=== PATIENT | male | born 1965 | race Caucasian/White ===

== ENCOUNTER 2018-08-04 12:09 | Inpatient (IN) | payer BC, OTHER ==
[2018-08-04] VITALS (11 sets, daily range): BP systolic 94–126; BP diastolic 72–97; PULSE 55–91; RESP 10–25; Ht 175.3 cm; Wt 86.4 kg
[~2018-08-04] VITALS: Ht 175.3 cm; Wt 86.4 kg
[2018-08-04] MEDS ORDERED: ONDANSETRON 4 MG INJ IV STA (12:12)
[2018-08-04] MEDS ORDERED: SOD CHLORIDE 0.9% 500 ML IV STA (12:12)
[2018-08-04] MEDS ORDERED: morphine 2 MG INJ IV STA (12:12)
[2018-08-04] MEDS ORDERED: HEPARIN 1000 UNITS/ML 10 ML INJ IV STA (12:12)
[2018-08-04] MEDS ORDERED: SIMV20TA PO (12:20)
--- NOTE | 2018-08-04 12:26 | ERD ---
ER Documentation Chief Complaint Chief Complaint STEMI HPI This is a 52-year-old man brought in by EMS for possible STEMI, patient de ulisesibes substernal chest discomfort, pressure while walking his dog, he had been walking for about 15 minutes 1 discomfort began. Was associated with shortness of breath, nausea, diaphoresis. Patient states he has had multiple milder episodes in the past. He denies history of IN, no aspirin use, no fevers or chills, no cough, no LOC. EMS administered aspirin 324 mg p.o. at the scene and transported him here. Patient has no significant family history of cardiac disease and no personal medical history of GI bleed. ROS All systems reviewed and are negative except as per history of present illness. Medications Home Meds Reported Medications Venlafaxine Hcl* (Effexor XR*) 37.5 Mg Tab.er.24, 37.5 MG PO DAILY, TAB 08/04/18 Lamotrigine* (Lamotrigine*) 100 Mg Tablet, 300 MG PO DAILY, TAB 08/04/18 Citalopram Hydrobromide* (Citalopram Hydrobromide*) 40 Mg Tablet, 40 MG PO DAILY, #30 TAB 08/04/18 Simvastatin* (Zocor*) 20 Mg Tablet, 20 MG PO QHS, #30 TAB 08/04/18 Allergies Allergies: Coded Allergies: No Known Allergy (Unverified , 08/04/18) FmHx Family History: No diabetes Physical Exam Vitals Vital Signs Date Temp Pulse Resp B/P (MAP) Pulse Ox O2 O2 Flow FiO2 Time Delivery Rate 08/04/18 97.6 92 24 144/94 100 12:14 (111) Physical Exam GENERAL: Well-developed, well-nourished, diaphoretic, uncomfortable, afebrile HEENT: Moist mucous membranes, pink conjunctiva, no cervical spine tenderness or step-off deformities, no goiter, no jaundice or icterus, extraocular movements intact without pain. NEURO: Alert and oriented 3, cranial nerves II through XII intact bilaterally, pupils equal round reactive to light, no focal deficits or facial asymmetry, sensation intact distally Strength 5/5 in upper and lower extremities bilater ally CARDIAC: Regular rate and rhythm, no murmurs rubs or gallops LUNGS: Clear bilaterally no wheezing crackles or stridor ABDOMEN: Soft nontender, no guarding, no rigidity, no rebound, no psoas sign no obturator sign. SKIN: Diaphoretic, no abrasions, contusions, or hematomas, no lacerations, no ec chymosis, no target lesions, and without ulcers EXTREMITIES: No clubbing cyanosis or edema, calves are bilaterally symmetrical, no Homans sign, no popliteal cord sign. Distal pulses equal and bilateral PSYCH: Normal affect without agitation or irritability Result Diagram: 08/04/18 1219 08/04/18 1219 Results 24 hrs Laboratory Tests Test 08/04/18 12:19 White Blood Count 7.8 10^3/ul Red Blood Count 5.25 10^6/ul Hemoglobin 16.3 g/dl Hematocrit 48.0 % Mean Corpuscular Volume 91.4 fl Mean Corpuscular Hemoglobin 31.0 pg Mean Corpuscular Hemoglobin Concent 34.0 g/dl Red Cell Distribution Width 12.0 % Platelet Count 295 10^3/UL Mean Platelet Volume 9.8 fl Immature Granulocytes % 0.300 % Neutrophils % 59.7 % Lymphocytes % 28.6 % Monocytes % 9.6 % Eosinophils % 1.2 % Basophils % 0.6 % Nucleated Red Blood Cells % 0.0 /100WBC Immature Granulocytes # 0.020 10^3/ul Neutrophils # 4.7 10^3/ul Lymphocytes # 2.2 10^3/ul Monocytes # 0.8 10^3/ul Eosinophils # 0.1 10^3/ul Basophils # 0.1 10^3/ul Nucleated Red Blood Cells # 0.0 10^3/ul Prothrombin Time 12.7 Sec Prothrombin Time Ratio 1.0 INR International Normalized Ratio 0.94 Activated Partial Thromboplast Time 25.6 Sec Sodium Level 141 mmol/L Potassium Level 3.9 mmol/L Chloride Level 106 mmol/L Carbon Dioxide Level 23 mmol/L Anion Gap 12 Blood Urea Nitrogen 15 mg/dl Creatinine 1.10 mg/dl Est Glomerular Filtrat Rate mL/min > 60 mL/min Glucose Level 137 mg/dl Calcium Level 9.5 mg/dl Total Bilirubin 0.6 mg/dl Direct Bilirubin 0.00 mg/dl Indirect Bilirubin 0.6 mg/dl Aspartate Amino Transf (AST/SGOT) 26 IU/L Alanine Aminotransferase (ALT/SGPT) 22 IU/L Alkaline Phosphatase 95 IU/L Creatine Kinase 108 IU/L Creatine Kinase Index 0.7 Creatinine Kinase MB (Mass) 0.74 ng/ml Troponin I < 0.012 ng/ml B-Type Natriuretic Peptide 14 PG/ML Total Protein 7.6 g/dl Albumin 4.5 g/dl Globulin 3.10 g/dl Albumin/Globulin Ratio 1.45 Lipase 96 U/L Current Medications Medications Dose Sig/Valorie Start Time Status Last (Trade) Ordered Route PRN Stop Time Admin Dose Reason Admin Sodium 500 ml @ Q1H STAT 08/04/18 DC 08/04/18 Chloride 500 mls/hr IV 12:12 12:23 08/04/18 13:11 Morphine 2 mg ONCE STAT 08/04/18 DC 08/04/18 Sulfate IV 12:12 12:23 (morphine) 08/04/18 12:14 Ondansetron 4 mg ONCE STAT 08/04/18 DC 08/04/18 HCl (Zofran IV 12:12 12:24 Inj) 08/04/18 12:14 Heparin 5,000 unit ONCE STAT 08/04/18 DC 08/04/18 Sodium IV 12:12 12:23 (Porcine) 08/04/18 12:14 (Heparin (1000 Units/ml)) Procedures/MDM IV line was established patient was placed on quality assurance monitor final rhythm strip revealed a sinus rhythm at about 90 bpm with upright P and T waves. Patient was afebrile I reviewed EMS EKG and revealed elevations in inferior lead with reciprocal nava ges consistent with inferior wall IN. Code STEMI was immediately called. Administered 500 cc normal saline IV, morphine 2 mg IV, Zofran 4 mg IV, nitroglycerin 0.4 mg sublingual, and IV heparin bolus I spoke to regional economist on-call who agreed with above plan and recommended immediate transfer to PCI lab EKG performed, read by me revealed a normal sinus rhythm at 99 bpm, normal axis, intraventricular conduction delay at 102 ms with [address] elevations in inferior leads and reciprocal changes in leads V2 through V4 consistent with acute ischemic injury. One AP view of the chest performed, read by me reveals no acute infiltrates, normal mediastinum, sharp costophrenic and cardiac borders, no air under the diaphragm. Otherwise unremarkable chest x-ray. Critical Care: Time: 38 minutes, this was time separate from other billable procedures. Treatments/Evaluations: Close monitoring and treatment of unstable vital signs, cardiorespiratory, and neurologic status, while maintaining tight balance of fluid, respiratory, and cardiac interventions. CBC and electrolytes were normal, liver function tests were normal, troponin was negative, coagulation profile was normal Patient presented with unstable angina with an EKG concerning for RCA occlusion, he required emergent PCI intervention and will be admitted to ICU post angioplasty Departure Diagnosis: Primary Impression: ST elevation myocardial infarction (STEMI) Involved coronary artery: other inferior wall coronary artery Qualified Codes: I21.19 - ST elevation (STEMI) myocardial infarction involving other coronary artery of inferior wall Additional Impressions: Unstable angina RCA occlusion Condition: Serious MIMI DUCKWORTH MD August 04, 2018 12:26
[2018-08-04] MEDS ORDERED: LAMO100T PO (12:28)
[2018-08-04] MEDS ORDERED: HEPARIN 1000 UNITS/ML 10 ML INJ ONE (12:28)
[2018-08-04] MEDS ORDERED: CITA40TA6 PO (12:28)
[2018-08-04] MEDS ORDERED: IODIXANOL LOCM 100 ML BTL ONE ×3 (12:28→13:27)
[2018-08-04] MEDS ORDERED: NITROGLYCERIN (IC) 100 MCG/ML INJ ONE (12:29)
[2018-08-04] MEDS ORDERED: VENL37.59 PO (12:29)
[2018-08-04] MEDS ORDERED: VERAPAMIL 5 MG INJ ONE (12:29)
[2018-08-04] MEDS ORDERED: LIDOCAINE 1% (MDV) 20 ML INJ ONE (12:29)
[2018-08-04] MEDS ORDERED: NITROGLYCERIN (SL) 0.4 MG TAB SL PRN (12:30)
[2018-08-04] MEDS ORDERED: morphine 10 MG INJ ONE (12:45)
[2018-08-04] MEDS ORDERED: MIDAZOLAM 1 MG/ML 2 ML INJ ONE (12:49)
[2018-08-04] MEDS ORDERED: TICAGRELOR 90 MG TABLET ONE (13:38)
[2018-08-04] MEDS ORDERED: ATROPINE 1 MG/10 ML SYRINGE ONE (14:00)
--- NOTE | 2018-08-04 14:06 | CONS ---
Assessment/Plan Assessment/Plan Hospital Course (Demo Recall) 52 yo with STEMI due to occluded RCA, s/p successful angioplasty, with preserved LVEF. Imp: STEMI inferior wall, s/p pci Hyperlipidemia Marijuana use Recommendations: ASA, ticagrelor, atorvastatin, metoprolol Echo Observe in ICU Lifestyle modification advised, marijuana cessation, plant-based diet Possible discharge home if stable overnight Consultation Date/Type/Reason Admit Date/Time August 04, 2018 at 12:53 Date of Consultation: August 04, 2018 Type of Consult Cardiology Reason for Consultation STEMI Requesting Provider: MIMI DUCKWORTH MD Date/Time of Note DATE: 08/04/18 TIME: 13:52 Hx of Present Illness 52 yo with history of hyperlipidemia and marijuana use who presents with acute chest pain while jogging with his dog one hour prior to arrival and ST elevations in the inferior leads, associated with arm pain. He underwent coronary angiography with angioplasty of a completely occluded RCA. Case significant for transient bradycardia, hypotension, and idioventricular rhythm, all of which resolved at the end of the procedure. Subjective hx not possible: pt critical Past Medical History Medical History: high cholesterol Home Meds Reported Medications Venlafaxine Hcl* (Effexor XR*) 37.5 Mg Tab.er.24, 37.5 MG PO DAILY, TAB 08/04/18 Lamotrigine* (Lamotrigine*) 100 Mg Tablet, 300 MG PO DAILY, TAB 08/04/18 Citalopram Hydrobromide* (Citalopram Hydrobromide*) 40 Mg Tablet, 40 MG PO DAILY, #30 TAB 08/04/18 Simvastatin* (Zocor*) 20 Mg Tablet, 20 MG PO QHS, #30 TAB 08/04/18 Medications Current Medications Nitroglycerin (Nitroglycerin (Sl Tab) 0.4 Mg) 1 tab Q5M UP TO 3 DOSES PRN SL .CHEST PAIN Last administered on 08/04/18at 12:24; Admin Dose 1 TAB; Start 08/04/18 at 12:30 Allergies: Coded Allergies: No Known Allergy (Unverified , 08/04/18) Family History Significant Family History: no pertinent family hx Social History Alcohol Use: rarely Smoking Status: Never smoker Drug Use: marijuana Exam/Review of Systems Vital Signs Vitals Vital Signs Date Temp Pulse Resp B/P (MAP) Pulse Ox O2 O2 Flow FiO2 Time Delivery Rate 08/04/18 Nasal 2 12:25 Cannula 08/04/18 97.6 92 24 144/94 100 12:14 (111) Exam Constitutional: alert, oriented Psych: nl mood/affect, anxiety Head: normocephalic, atraumatic Eyes: nl conjunctiva, EOMI, nl lids, nl sclera ENMT: nl lips & teeth, nl nasal mucosa & septum Neck: supple; No jvd, No bruits Respiratory: clear to auscultation, normal air movement Cardiovascular: regular rate and rhythm, nl pulses (nl radial); No edema, No murmurs/extra sounds Gastrointestinal: soft Musculoskeletal: nl extremities to inspection Neurological: nl mental status, nl speech Skin: nl turgor Labs Result Diagram: 08/04/18 1219 08/04/18 1219 Results 24hrs Laboratory Tests Test 08/04/18 12:19 White Blood Count 7.8 Red Blood Count 5.25 Hemoglobin 16.3 Hematocrit 48.0 Mean Corpuscular Volume 91.4 Mean Corpuscular Hemoglobin 31.0 Mean Corpuscular Hemoglobin Concent 34.0 Red Cell Distribution Width 12.0 Platelet Count 295 Mean Platelet Volume 9.8 Immature Granulocytes % 0.300 Neutrophils % 59.7 Lymphocytes % 28.6 Monocytes % 9.6 Eosinophils % 1.2 Basophils % 0.6 Nucleated Red Blood Cells % 0.0 Immature Granulocytes # 0.020 Neutrophils # 4.7 Lymphocytes # 2.2 Monocytes # 0.8 Eosinophils # 0.1 Basophils # 0.1 Nucleated Red Blood Cells # 0.0 Prothrombin Time 12.7 Prothrombin Time Ratio 1.0 INR International Normalized Ratio 0.94 Activated Partial Thromboplast Time 25.6 Sodium Level 141 Potassium Level 3.9 Chloride Level 106 Carbon Dioxide Level 23 Anion Gap 12 Blood Urea Nitrogen 15 Creatinine 1.10 Est Glomerular Filtrat Rate mL/min > 60 Glucose Level 137 Calcium Level 9.5 Total Bilirubin 0.6 Direct Bilirubin 0.00 Indirect Bilirubin 0.6 Aspartate Amino Transf (AST/SGOT) 26 Alanine Aminotransferase (ALT/SGPT) 22 Alkaline Phosphatase 95 Creatine Kinase 108 Creatine Kinase Index 0.7 Creatinine Kinase MB (Mass) 0.74 Troponin I < 0.012 B-Type Natriuretic Peptide 14 Total Protein 7.6 Albumin 4.5 Globulin 3.10 Albumin/Globulin Ratio 1.45 Lipase 96 Medications Medications Current Medications Nitroglycerin (Nitroglycerin (Sl Tab) 0.4 Mg) 1 tab Q5M UP TO 3 DOSES PRN SL .CHEST PAIN Last administered on 08/04/18at 12:24; Admin Dose 1 TAB; Start 08/04/18 at 12:30 EZEQUIEL BENOIT August 04, 2018 14:02
--- NOTE | 2018-08-04 14:22 | OPR ---
Date/Time of Note Date/Time of Note DATE: 08/04/18 TIME: 14:16 Operative Report Procedure Date: August 04, 2018 Preoperative Diagnosis STEMI inferior wall Postoperative Diagnosis same Operation/Procedure Performed moderate sedation, coronary angiogram, left heart cath, left ventriculography, pci with stent to the mid RCA Surgeon see signature line Pole Sander Operator Hugo TIRE MAKER Anesthesia Type: moderate sedation Estimated Blood Loss: 50 - 100 ml's Transfusion none Specimen none Grafts/Implants Xience 3.5 x 23 mm Complications none Pt Condition Post Procedure: stable Disposition: other (ICU) Indications 52 yo with acute inferior STEMI Procedure Description Procedure: Informed consent obtained. Pt brought emergently to the lab support technician, having eaten 2 hours earlier, received careful moderate sedation with 2 mg of versed and morphine. Right radial artery accessed, 6F sheath placed, verapamil and nitro given through the sheath. A tiger catheter engaged the LM and RCA and images obtained with contrast. ACT checked, additional heparin given. A JR4 guide used, and wire advanced down the RCA. A 2.5 x 12 mm balloon inflated, then a pronto catheter passed, and a 3.0 x 12 mm balloon inflated. The lesion was stented with a 3.5 x 23 mm stent. Angiography performed in multiple projections including a wire out shot demonstrating good apposition of the stent and good flow. Pigtail catheter advanced and crossed the LV, pressures measured, LV gram performed, and pullback gradient measured. At the end, nitro given through the sheath, and then a TR band placed. During the case, pt had bradycardia, idioventricular rhythm, and transient hypotension. He left the room in stable condition. Findings: LM - normal LCX - normal, two large om's LAD - mild luminal irregularities RCA - 100% occluded in mid portion. Once opened, extensive posterolateral branch system free of significant disease LVEDP - 27 LVEF - 55% with inferior basal akinesis EZEQUIEL BENOIT August 04, 2018 14:22
[2018-08-04] MEDS: SOD CHLORIDE 0.9% 1,000 ML IV SCH (14:42)
[2018-08-04] MEDS: METOPROLOL 25 MG TAB PO SCH ×2 (15:07→20:57)
--- NOTE | 2018-08-04 16:03 | HP ---
Date/Time of Note Date/Time of Note DATE: 08/04/18 TIME: 15:55 Assessment/Plan VTE Prophylaxis SCD contraindicated: low risk/ambulating Pharmacological prophylaxis: NA/contraindicated Pharm contraindication: low risk/ambulating Lines/Catheters IV Catheter Type (from Nrs): Saline Lock Assessment/Plan Hospital Course 52 yo M with cp while jogging managed as follows : 1. STEMI inferior wall, s/p emergent pci RCA 2. Chronic Hyperlipidemia on statin 3. Marijuana use Plan: continue routine ICU care and monitoring post Cath patient now on asa / statin / brilinta Case mgt consult to help in ensuring patient can get brilinta outpatient smoking Cessation Therapy: Pt. was counselled for greater than 3 minutes on the health risks of continued smoking and the benefits of cessation, this will continue to be reinforced throughout hospitalization. screening labs and close monitoring further interventions per course Result Diagram: 08/04/18 1219 08/04/18 1219 Results 24hrs Laboratory Tests Test 08/04/18 12:19 White Blood Count 7.8 Red Blood Count 5.25 Hemoglobin 16.3 Hematocrit 48.0 Mean Corpuscular Volume 91.4 Mean Corpuscular Hemoglobin 31.0 Mean Corpuscular Hemoglobin Concent 34.0 Red Cell Distribution Width 12.0 Platelet Count 295 Mean Platelet Volume 9.8 Immature Granulocytes % 0.300 Neutrophils % 59.7 Lymphocytes % 28.6 Monocytes % 9.6 Eosinophils % 1.2 Basophils % 0.6 Nucleated Red Blood Cells % 0.0 Immature Granulocytes # 0.020 Neutrophils # 4.7 Lymphocytes # 2.2 Monocytes # 0.8 Eosinophils # 0.1 Basophils # 0.1 Nucleated Red Blood Cells # 0.0 Prothrombin Time 12.7 Prothrombin Time Ratio 1.0 INR International Normalized Ratio 0.94 Activated Partial Thromboplast Time 25.6 Sodium Level 141 Potassium Level 3.9 Chloride Level 106 Carbon Dioxide Level 23 Anion Gap 12 Blood Urea Nitrogen 15 Creatinine 1.10 Est Glomerular Filtrat Rate mL/min > 60 Glucose Level 137 Calcium Level 9.5 Total Bilirubin 0.6 Direct Bilirubin 0.00 Indirect Bilirubin 0.6 Aspartate Amino Transf (AST/SGOT) 26 Alanine Aminotransferase (ALT/SGPT) 22 Alkaline Phosphatase 95 Creatine Kinase 108 Creatine Kinase Index 0.7 Creatinine Kinase MB (Mass) 0.74 Troponin I < 0.012 B-Type Natriuretic Peptide 14 Total Protein 7.6 Albumin 4.5 Globulin 3.10 Albumin/Globulin Ratio 1.45 Lipase 96 HPI/ROS Admit Date/Time Admit Date/Time August 04, 2018 at 12:53 Hx of Present Illness 52-year-old man brought who had developed substernal chest discomfort, pressure while walking his dog, he had been walking for about 15 minutes 1 discomfort began. Was associated with shortness of breath, nausea, diaphoresis. Patient states he has had multiple milder episodes in the past. He denies history of CT, no aspirin use, no fevers or chills, no cough, no LOC. EMS administered aspirin 324 mg p.o. at the scene and transported him here. Patient has no significant family history of cardiac disease. Patient was emergently taken to lab assistant where he underwent coronary angiogram, left heart cath, left ventriculography, pci with stent to the mid RCA. patient is now being monitored on ICU. ROS 12 point review if systems was done and pertinent findings are as noted. PMH/Family/Social Past Medical History * depression * dyslipidemia Medications Current Medications Nitroglycerin (Nitroglycerin (Sl Tab) 0.4 Mg) 1 tab Q5M UP TO 3 DOSES PRN SL .CHEST PAIN Last administered on 08/04/18at 12:24; Admin Dose 1 TAB; Start 08/04/18 at 12:30 Aspirin (Halfprin) 81 mg DAILY PO ; Start 08/05/18 at 09:00 Ticagrelor (Brilinta) 90 mg BID PO ; Start 08/04/18 at 23:00 Metoprolol Tartrate (Lopressor) 25 mg BID PO Last administered on 08/04/18at 15:07; Admin Dose 25 MG; Start 08/04/18 at 14:30 Atorvastatin Calcium (Lipitor) 80 mg DAILY@21 PO ; Start 08/04/18 at 21:00 Sodium Chloride 1,000 ml @ 75 mls/hr [id number] IV Last administered on 08/04/18at 14:42; Admin Dose 75 MLS/HR; Start 08/04/18 at 14:30; Stop 08/05/18 at 03:49 Coded Allergies: No Known Allergy (Unverified , 08/04/18) Past Surgical History * hernia repair Family History Significant Family History: no pertinent family hx Social History Alcohol Use: rarely Smoking Status: Never smoker Drug Use: marijuana Exam/Review of Systems Vital Signs Vitals Vital Signs Date Temp Pulse Resp B/P (MAP) Pulse Ox O2 O2 Flow FiO2 Time Delivery Rate 08/04/18 73 10 104/72 95 Room Air 15:00 (83) 08/04/18 97.0 14:45 08/04/18 2 12:25 Exam Constitutional: alert, oriented; No distress Head: normocephalic Eyes: PERRL Neck: supple Respiratory: clear to auscultation Cardiovascular: regular rate and rhythm; No murmurs/extra sounds Gastrointestinal: soft, non-tender, bowel sounds Extremities: No edema Neurological: nl mental status Additional Comments PROCEDURE: XR Chest. CLINICAL INDICATION: Chest pain. TECHNIQUE: Single frontal chest x-ray. COMPARISON: None. FINDINGS: The lungs are clear. No focal opacification is seen. The cardiomediastinal silhouette is unremarkable. The osseous structures are unremarkable. Transcutaneous pacer pad overlapping the right chest and the left lower lateral chest wall. IMPRESSION: 1. No acute cardiopulmonary process. RPTAT: PP .Hal Dean MD, Date Time Electronically viewed and signed by .Hal Dean MD, on 08/04/2018 12:27 .B/ CC: MIMI DUCKWORTH MD [phone] MICHELLE FORTUNE August 04, 2018 16:03
--- NOTE | 2018-08-04 18:52 | RADRPT ---
Vent Rate: 78 bpm RR Interval: 772 msec ND Interval: 200 msec QRS Duration: 100 msec QT Interval: 395 msec QTC Interval: 450 msec P-R-T [place]: 55 - 27 - 57 degrees Sinus rhythm...normal P axis, V-rate 50- 99 Electronically Signed By: Ramesh Briceno
[2018-08-04] MEDS ORDERED: ONDANSETRON 4 MG INJ IV PRN (19:00)
[2018-08-04] MEDS ORDERED: ACETAMINOPHEN 325 MG TAB PO PRN (19:00)
[2018-08-04] MEDS ORDERED: NORepinephrine 8MG/250 ML (PMX 250 ML ONE (19:23)
[2018-08-04] MEDS ORDERED: ATORVASTATIN 80 MG TAB PO SCH (21:00)
[2018-08-04] MEDS ORDERED: VENLAFAXINE 37.5 MG TAB PO ONE ×2 (21:00→22:30)
[2018-08-04] MEDS: TICAGRELOR 90 MG TABLET PO SCH (22:13)
[2018-08-04] MEDS ORDERED: CITALOPRAM 20 MG TAB PO ONE ×2 (22:30→23:30)
[2018-08-04] MEDS ORDERED: LAMOTRIGINE 100 MG TAB PO ONE ×2 (22:30→23:00)
[2018-08-04] MEDS: ZOLPIDEM 5 MG TAB PO PRN (23:19)
[2018-08-04] MEDS: ACETAMINOPHEN 325 MG TAB PO PRN (23:19)
[2018-08-05] VITALS (16 sets, daily range): BP systolic 101–130; BP diastolic 50–94; PULSE 52–78; RESP 15–22
[2018-08-05] MEDS: ZOLPIDEM 5 MG TAB PO PRN (00:54)
[2018-08-05] MEDS: SOD CHLORIDE 0.9% 1,000 ML IV SCH (03:26)
[2018-08-05] MEDS: ACETAMINOPHEN 325 MG TAB PO PRN (05:24)
[2018-08-05] MEDS: TICAGRELOR 90 MG TABLET PO SCH (08:37)
[2018-08-05] MEDS: METOPROLOL 25 MG TAB PO SCH (08:38)
[2018-08-05] MEDS ORDERED: ASPIRIN (EC) 81 MG TAB PO SCH (09:00)
--- NOTE | 2018-08-05 09:17 | CONS ---
Assessment/Plan Assessment/Plan Hospital Course (Demo Recall) 52 yo with STEMI due to occluded RCA, s/p successful angioplasty, with preserved LVEF. Imp: STEMI inferior wall, s/p pci Hyperlipidemia Marijuana use Recommendations: ASA, ticagrelor, atorvastatin, metoprolol Discussed importance of medication compliance Echo will be done this morning Again, lifestyle modification advised, marijuana cessation, plant-based diet Discharge home later today, follow with me in one weekt Consultation Date/Type/Reason Admit Date/Time August 04, 2018 at 12:53 Initial Consult Date 08/04/18 Type of Consult Cardiology Requesting Provider: MIMI DUCKWORTH MD Date/Time of Note DATE: 08/05/18 TIME: 09:13 24 HR Interval Summary Free Text/Dictation Overnight had some vague discomfort in the shoulders and chest, very different from what he experienced on presentation to the hospital. Exam/Review of Systems Vital Signs Vitals Vital Signs Date Temp Pulse Resp B/P (MAP) Pulse Ox O2 O2 Flow FiO2 Time Delivery Rate 08/05/18 58 17 123/91 92 Room Air 07:00 (102) 08/05/18 98.5 04:00 08/04/18 2 12:25 Intake and Output 08/04/18 08/04/18 08/05/18 1515:00 23:00 07:00 IntakeIntake Total 20 ml 960 ml 525 ml OutputOutput Total 600 ml BalanceBalance 20 ml 360 ml 525 ml Exam Constitutional: alert, oriented, well developed Psych: nl mood/affect Head: normocephalic, atraumatic Eyes: nl conjunctiva, EOMI, nl lids, nl sclera ENMT: nl external ears & nose, nl lips & teeth, nl nasal mucosa & septum Neck: supple; No jvd, No bruits Respiratory: clear to auscultation, normal air movement Cardiovascular: regular rate and rhythm, nl pulses (right radial cath site intact, normal pulse, hand warm); No murmurs/extra sounds Gastrointestinal: soft, nl liver, spleen, non-tender Musculoskeletal: nl extremities to inspection Extremities: normal pulses Neurological: nl mental status, nl speech Skin: nl turgor; No rash or lesions Labs Result Diagram: 08/05/18 0531 08/05/18 0531 Results 24hrs Laboratory Tests Test 08/04/18 12:19 08/04/18 17:30 08/05/18 05:31 White Blood Count 7.8 10.3 # Red Blood Count 5.25 4.30 L Hemoglobin 16.3 13.6 L Hematocrit 48.0 40.9 L Mean Corpuscular Volume 91.4 95.1 Mean Corpuscular Hemoglobin 31.0 31.6 Mean Corpuscular Hemoglobin Concent 34.0 33.3 Red Cell Distribution Width 12.0 12.8 Platelet Count 295 230 # Mean Platelet Volume 9.8 10.1 Immature Granulocytes % 0.300 0.300 Neutrophils % 59.7 81.3 H Lymphocytes % 28.6 9.3 L Monocytes % 9.6 8.7 Eosinophils % 1.2 0.1 Basophils % 0.6 0.3 Nucleated Red Blood Cells % 0.0 0.0 Immature Granulocytes # 0.020 0.030 Neutrophils # 4.7 8.4 H Lymphocytes # 2.2 1.0 Monocytes # 0.8 0.9 Eosinophils # 0.1 0.0 Basophils # 0.1 0.0 Nucleated Red Blood Cells # 0.0 0.0 Prothrombin Time 12.7 Prothrombin Time Ratio 1.0 INR International Normalized Ratio 0.94 Activated Partial Thromboplast Time 25.6 Sodium Level 141 138 Potassium Level 3.9 4.9 Chloride Level 106 107 Carbon Dioxide Level 23 24 Anion Gap 12 7 Blood Urea Nitrogen 15 14 Creatinine 1.10 0.83 Est Glomerular Filtrat Rate mL/min > 60 > 60 Glucose Level 137 122 Calcium Level 9.5 8.5 Total Bilirubin 0.6 Direct Bilirubin 0.00 Indirect Bilirubin 0.6 Aspartate Amino Transf (AST/SGOT) 26 Alanine Aminotransferase (ALT/SGPT) 22 Alkaline Phosphatase 95 Creatine Kinase 108 1077 #H 1093 H Creatine Kinase Index 0.7 7.5 6.8 Creatinine Kinase MB (Mass) 0.74 80.30 H 73.90 H Troponin I < 0.012 39.100 *H 54.100 *H B-Type Natriuretic Peptide 14 Total Protein 7.6 Albumin 4.5 Globulin 3.10 Albumin/Globulin Ratio 1.45 Lipase 96 Hemoglobin A1c 5.5 Triglycerides Level 87 Cholesterol Level 156 LDL Cholesterol, Calculated 97 HDL Cholesterol 42 Cholesterol/HDL Ratio 3.7 Thyroid Stimulating Hormone (TSH) 1.240 Medications Medications Current Medications Nitroglycerin (Nitroglycerin (Sl Tab) 0.4 Mg) 1 tab Q5M UP TO 3 DOSES PRN SL .CHEST PAIN Last administered on 08/04/18 12:24; Admin Dose 1 TAB; Start 08/04/18 at 12:30 Aspirin (Halfprin) 81 mg DAILY PO Last administered on 08/05/18 08:37; Admin Dose 81 MG; Start 08/05/18 at 09:00 Ticagrelor (Brilinta) 90 mg BID PO Last administered on 08/05/18 08:37; Admin Dose 90 MG; Start 08/04/18 at 23:00 Metoprolol Tartrate (Lopressor) 25 mg BID PO Last administered on 08/05/18 08:38; Admin Dose 25 MG; Start 08/04/18 at 14:30 Atorvastatin Calcium (Lipitor) 80 mg DAILY@21 PO Last administered on 08/04/18 20:56; Admin Dose 80 MG; Start 08/04/18 at 21:00 Ondansetron HCl (Zofran Inj) 4 mg Q6H PRN IV NAUSEA AND/OR VOMITING Last administered on 08/05/18 08:23; Admin Dose 4 MG; Start 08/04/18 at 19:00 Zolpidem Tartrate (Ambien) 5 mg HS MAY REPEAT X 1 PRN PO INSOMNIA Last administered on 08/05/18 00:54; Admin Dose 5 MG; Start 08/04/18 at 23:00 Acetaminophen (Tylenol Tab) 650 mg Q4 PRN PO HEADACHE/MUSCLE PAIN/NECK PAIN Last administered on 08/05/18 05:24; Admin Dose 650 MG; Start 08/04/18 at 23:30 EZEQUIEL BENOIT August 05, 2018 09:17
[2018-08-05] MEDS ORDERED: TICA90TA PO (10:51)
[2018-08-05] MEDS ORDERED: ATOR-2 PO (10:51)
[2018-08-05] MEDS ORDERED: METO-448 PO (10:51)
[2018-08-05] MEDS ORDERED: ASPI-1044 PO (10:51)
[2018-08-05] MEDS ORDERED: NITR0.4T32 SL (10:51)
--- NOTE | 2018-08-05 10:52 | PDOCDIS ---
Discharge Instructions CONDITION [id number] Patient Condition: [id number] Good HOME CARE INSTRUCTIONS: [id number] Diet Instructions: [id number] Modified Fat ACTIVITY: [id number] Activity Restrictions: [id number] No Restrictions FOLLOW UP/APPOINTMENTS Follow-up Plan Follow-up with your PCP 1 to 2 weeks, follow-up with Dr. Vero Roque in 1 week MENA RODRIGUEZ August 05, 2018 10:52
--- NOTE | 2018-08-05 10:54 | DS ---
Date/Time of Note Date/Time of Note DATE: 08/05/18 TIME: 10:53 Discharge Summary Admission/Discharge Info Admit Date/Time August 04, 2018 at 12:53 Discharge Date/Time August 05, 2018 Discharge Diagnosis 1. STEMI inferior wall, s/p pci DC with cardiac meds 2. Dyslipidemia DC with statin 3. Marijuana use Cessation advised 4. Depression Continue home meds Patient Condition: Good Hospital Course Patient is a 52 yo with STEMI due to occluded RCA, s/p successful angioplasty, w ith preserved LVEF. Patient was started on cardiac meds and was clear for DC per cardiology. On the day of discharge patient vitals, labs of exam are stable. Home Meds Active Scripts Aspirin Delayed Release (Aspirin Delayed Release) 81 Mg Tablet.dr, 81 MG PO DAILY, #60 TAB Prov:MENA RODRIGUEZ 08/05/18 Nitroglycerin* (Nitroglycerin* SL) 0.4 Mg Tab.subl, 1 TAB SL .Q5M UP TO 3 DOSES PRN for .CHEST PAIN, #60 TAB Prov:MENA RODRIGUEZ 08/05/18 Metoprolol Tartrate* (Lopressor*) 25 Mg Tab, 25 MG PO BID, #60 TAB Prov:MENA RODRIGUEZ 08/05/18 Atorvastatin* (Atorvastatin*) 80 Mg Tablet, 80 MG PO DAILY@21, #60 TAB Prov:MENA RODRIGUEZ 08/05/18 Ticagrelor* (Brilinta*) 90 Mg Tablet, 90 MG PO BID, #60 TAB Prov:MENA RODRIGUEZ 08/05/18 Reported Medications Venlafaxine Hcl* (Effexor XR*) 37.5 Mg Tab.er.24, 112.5 MG PO DAILY, TAB 08/04/18 Lamotrigine* (Lamotrigine*) 100 Mg Tablet, 300 MG PO DAILY, TAB 08/04/18 Citalopram Hydrobromide* (Citalopram Hydrobromide*) 40 Mg Tablet, 20 MG PO DAILY, #30 TAB 08/04/18 Discontinued Reported Medications Simvastatin* (Zocor*) 20 Mg Tablet, 20 MG PO QHS, #30 TAB 08/04/18 Follow-up Plan Follow-up with your PCP 1 to 2 weeks, follow-up with Dr. Vero Roque in 1 week Primary Care Provider Not On Staff Doctor Time spent on discharge: > 30 minutes MENA RODRIGUEZ August 05, 2018 10:54
--- NOTE | 2018-08-05 20:25 | RADRPT ---
Vent Rate: 59 bpm RR Interval: 1024 msec [place] Interval: 181 msec QRS Duration: 96 msec QT Interval: 421 msec QTC Interval: 416 msec P-R-T [place]: 47 - 25 - 11 degrees Sinus rhythm...normal P axis, V-rate 50- 99 Electronically Signed By: Ramesh Briceno
--- NOTE | 2018-08-05 22:17 | RADRPT ---
Echocardiogram Report Patient Name: TONY MIXONPatient ID: [id number] : 1965 (52y 7m)Study Date: 08/05/2018 9:19:14 AM Gender: Percycession #: [id number] Tech: PERCY Location: [facility] Ref.Physician: VERO ROQUE Height(Cm): 175 BSA: 2.05Weight(Kg): 86.2 Quality: AdequateOrder Physician: VERO ROQUE Account #: Procedures: Echocardiographic Report: Transthoracic echocardiogram with complete 2D, M-Mode, and Doppler examination. Indications: Evaluate Left Ventricular function; NM. Measurements: 2D/M Mode Doppler Measurement Value Normal Range Measurement Value Normal Range LA Volume 41.8 [ 18.0 - 58.0 ] ml AV Peak [place] 1.2 [ 100.0 - 170.0 ] c m/sec LA Volume Index 21 [ 16 - 34 ] ml/m2 AV Peak PG 6.0 [ 2.0 - 9.0 ] mmHg LVIDd 2D 5.3 [ 4.2 - 5.8 ] cm LVOT Peak [place] 0.9 [ 70.0 - 110.0 ] cm /sec LVIDs 2D 3.9 [ 2.5 - 4.0 ] cm LVOT Peak PG 3.0 [ 2.0 - 6.0 ] mmHg LVPWd 2D 1.0 [ 0.6 - 1.0 ] cm MV E Peak [place] 0.6 [ 60.0 - 130.0 ] cm /sec IVSd 2D 1.0 [ 0.6 - 1.0 ] cm MV A Peak [place] 0.5 [ 100.0 - 120.0 ] c m/sec AoR Diam 2D 3.7 [ 2.6 - 3.4 ] cm MV E/A 1.3 [ 0.8 - 1.5 ] ratio EF 2D 51.3 [ 52.0 - 72.0 ] percent MV PHT 50.0 [ 20.0 - 100.0 ] ms ec LA Dimen 2D 3.2 [ 3.0 - 4.0 ] cm MV Decel Time 169 [ 104 - 258 ] msec MV Decel [place] 4 Lat E` Irwin 0.1 [ 10.0 - 15.0 ] cm/ sec Lateral E/E` 5.0 [ 1.0 - 2.0 ] ratio Med E` Irwin 0.1 cm/sec MV E/A 1.3 [ 0.8 - 1.5 ] ratio MVA PHT 4.4 [ 2.0 - 4.0 ] cm2 PV Peak [place]win 0.7 [ 40.0 - 80.0 ] cm/ sec PV Peak PG 2.0 mmHg Findings: Left Ventricle: Lower limits of normal systolic function. Normal left ventricular cavity size. Ejection fraction is visually estimated at 53 %. Tissue Doppler/Mitral Doppler indices are within normal limits. E/E'= 9. These segments of the LV are akinetic inferior base segment and inferior mid segment. Right Ventricle: Normal right ventricular size. Normal right ventricular systolic function. Left Atrium: The left atrium is normal in size. LA Volume Index= 21. Right Atrium: The right atrium is normal in size. Atrial Septum: Normal atrial septum. Mitral Valve: Normal appearance of the mitral valve. Mild mitral valve regurgitation. Aortic Valve: No significant aortic stenosis or insufficiency. Normal trileaflet aortic valve structure. Tricuspid Valve: Normal appearance and function of the tricuspid valve with trace physiologic regurgitation. Pulmonic Valve: Pulmonic valve not well visualized. There is trace pulmonic regurgitation. Pericardium: Normal pericardium with no significant pericardial effusion. Aorta: Sinus of valsalva is mildly dilated. Sinus of valsalva 3.70 cm. There is mild aortic root dilation. Ascending Aorta 4 cm. IVC: Normal size and normal respiratory collapse consistent with normal right atrial pressure. Pulmonary Artery: Normal pulmonary artery size. Conclusions: Low normal left ventircular systolic function with akinesis of the inferior base and mid inferior wall. Trace tricuspid regurgitatoin. Mild mitral regurgitation. Mildly dilated ascending thoracic aorta. Electronically Signed By: Vero Roque 2018-08-05 22:16:50 PDT
== END 2018-08-05 16:20 | disposition home or self-care (01) | DRG 247 ==
LOC: E/R 12:09 → CCL 12:20 → SDS 12:20 → CCL 12:52 → REC 12:53 → ICU 14:10
PROVIDERS: ADMIT Internal Medicine Interventional Cardiology; ATTEND Internal Medicine
PROC: B211YZZ Fluoroscopy of Multiple Coronary Arteries using Other Contrast (ICD-10-PCS; 2018-08-04)
PROC: B215YZZ Fluoroscopy of Left Heart using Other Contrast (ICD-10-PCS; 2018-08-04)
PROC: 027034Z Dilation of Coronary Artery, One Artery with Drug-eluting Intraluminal Device, Percutaneous Approach (ICD-10-PCS; principal; 2018-08-04 12:30)
PROC: 4A023N7 Measurement of Cardiac Sampling and Pressure, Left Heart, Percutaneous Approach (ICD-10-PCS; 2018-08-04 12:30)
DX: I21.4 Non-ST elevation (NSTEMI) myocardial infarction (principal); I25.10 Atherosclerotic heart disease of native coronary artery without angina pectoris; E78.5 Hyperlipidemia, unspecified
CPT/HCPCS: 36415; 71045; 80048; 80053; 80061; 82550; 82553; 83036; 83690; 83880; 84443; 84484; 85025; 85610; 85730; 87081; 93005; 93306; 93458; 96374; 96375; C1725; C1757; C1874; C1887; C9606; J0461; J1644; J2250; J2270; J2405; J7040; Q9967